=== PATIENT | female | born 1980 | race Caucasian/White ===

== ENCOUNTER 2023-02-17 12:51 | Emergency (ER) | payer MEDICAID ==
[~2023-02-17] VITALS: Ht 157.5 cm; Wt 46.3 kg
--- NOTE | 2023-02-17 13:26 | NUR ---
Dr. Chambers. at bedside exam in progress.
[2023-02-17] MEDS ORDERED: MORPHINE SULFATE 2 MG/1 ML DISP.SYRIN IV ONE (13:30)
[2023-02-17] MEDS ORDERED: IV NORMAL SALINE 1000 ML BAG IV ONE (13:30)
[2023-02-17 13:44] LABS: HEMATOCRIT 35.9 % (31.2-41.9); MEAN CORPUSCULAR HEMOGLOBIN 29.8 uug (24.7-32.8); MEAN CORPUSCULAR VOLUME 90.1 fL (75.5-95.3); PLATELET COUNT (AUTO) 332 K/uL (179-408)
[2023-02-17] MEDS ORDERED: MORPHINE SULFATE 2 MG/1 ML DISP.SYRIN ONE (13:49)
[2023-02-17 13:59] LABS: BILIRUBIN,DIRECT 0.2 mg/dL (0.0-0.2); BILIRUBIN,TOTAL 0.8 mg/dL (0.2-1.0); CREATININE 0.7 mg/dL (0.6-1.3); POTASSIUM 3.9 mmol/L (3.5-5.1); TOTAL PROTEIN, SERUM 8.3 g/dL (6.4-8.2)
[2023-02-17 14:29] LABS: *BILIRUBIN,URIN NEGATIVE (NEGATIVE); *BLOOD, URINE 2+ (NEGATIVE); *CLARITY,URINE CLEAR (CLEAR); *COLOR,URINE YELLOW (YELLOW); *KETONES,URINE 2+ (NEGATIVE); *UROBILINOGEN,URINE 0.2 E.U./dl (NORMAL); LEUKOCYTE ESTERASE ,URINE NEGATIVE (NEGATIVE); NITRITE, URINE NEGATIVE (NEGATIVE); UGLUCOSE NEGATIVE (NEGATIVE)
[2023-02-17 14:30] LABS: *URINE HCG, QUAL NEG (NEGATIVE)
[2023-02-17] MEDS ORDERED: SWABABLE VALVE TRANSFER SET EA MC ONE (14:35)
[2023-02-17] MEDS ORDERED: IOHEXOL 300MG/ML 100 ML INFUS..BTL ONE (14:35)
[2023-02-17] MEDS ORDERED: IV NORMAL SALINE 250 ML IV ONE (14:35)
[2023-02-17] MEDS ORDERED: KETOROLAC TROMETHAMINE 15 MG INJ IVP ONE (16:00)
[2023-02-17] MEDS ORDERED: KETOROLAC TROMETHAMINE 15 MG INJ ONE (16:37)
--- NOTE | 2023-02-17 16:40 | NUR ---
drained cyst at the vaginal area
[2023-02-17] MEDS ORDERED: LIDOCAINE HCL 1% 20 ML VIAL ONE (17:13)
[2023-02-17] MEDS ORDERED: LIDOCAINE HCL 1% 20 ML VIAL IJ ONE (17:15)
[2023-02-17 17:21] LABS: BACTERIA,URINE NONE SEEN /HPF (NONE SEEN); MUCUS,URINE MANY /LPF (0-FEW); SQUAMOUS EPITHELIAL CELL,UR FEW /HPF (NONE SEEN); WBC,URINE 0-3 /HPF (0-3)
[2023-02-17] MEDS ORDERED: FENTANYL CITRATE 100 MCG/2 ML AMPUL ONE (17:44)
[2023-02-17] MEDS ORDERED: FENTANYL CITRATE 100 MCG/2 ML AMPUL IV ONE (17:45)
[2023-02-17] MEDS ORDERED: CLIN300C12 PO (18:44)
[2023-02-17] MEDS ORDERED: CEFI400C4 PO (18:44)
--- NOTE | 2023-02-17 19:21 | NUR ---
DCD instructions and prescription given to pt. who verbalized understanding.
== END 2023-02-17 19:21 | disposition home or self-care (01) ==
LOC: ER 12:51
DX: N75.1 Abscess of Bartholin's gland (principal); Z91.010 Allergy to peanuts; Z79.2 Long term (current) use of antibiotics
CPT/HCPCS: 36415; 76856; 83690; 84703; 85025; A4663; J1885; J2270; J3010; J3490; J7040; Q9967